=== PATIENT | female | born 1990 | race Caucasian/White ===

== ENCOUNTER 2018-11-16 19:07 | Emergency (ER) | payer OTHER ==
[~2018-11-16] VITALS: Ht 177.8 cm; Wt 72.6 kg
[2018-11-16] MEDS ORDERED: IBU800 MG PO (19:20)
[2018-11-16] MEDS ORDERED: CYCLOBENZAPRINE10 MG PO (19:20)
== END 2018-11-16 19:45 | disposition home or self-care (01) ==
LOC: ED 19:07
DX: S13.4XXA Sprain of ligaments of cervical spine, initial encounter (principal); M25.511 Pain in right shoulder; V89.2XXA Person injured in unspecified motor-vehicle accident, traffic, initial encounter; Y93.I9 Activity, other involving external motion; Y92.488 Other paved roadways as the place of occurrence of the external cause; Y99.8 Other external cause status

== ENCOUNTER → 2021-05-12 | Outpatient (CLI) | payer OTHER ==
[~2021-05-12] MED LIST: CYCLOBENZAPRINE10 MG PO; IBU800 MG PO
== END | disposition home or self-care (01) ==
LOC: COVID19 15:50
PROVIDERS: ATTEND Internal Medicine
DX: Z20.822 Contact with and (suspected) exposure to COVID-19 (principal)